=== PATIENT | male | born 1975 | race Caucasian/White ===

== ENCOUNTER 2017-01-06 21:05 | Emergency (ER) | payer OTHER | END 2017-01-06 23:45 | disposition home or self-care (01) | LOC: FER 21:05 | DX: S00.83XA Contusion of other part of head, initial encounter (principal); R41.3 Other amnesia; G43.909 Migraine, unspecified, not intractable, without status migrainosus; Z88.0 Allergy status to penicillin; Z79.899 Other long term (current) drug therapy; W22.03XA Walked into furniture, initial encounter; Y92.69 Other specified industrial and construction area as the place of occurrence of the external cause; Y99.0 Civilian activity done for income or pay | CPT/HCPCS: 70450; J1885; J2270 ==